=== PATIENT | male | born 1970 | race Caucasian/White ===

== ENCOUNTER 2016-11-25 00:53 | Emergency (ER) | payer OTHER ==
[~2016-11-25] VITALS: Ht 167.6 cm; Wt 72.6 kg
[2016-11-25] MEDS ORDERED: QVAR7.3 GM INH (01:02)
[2016-11-25] MEDS ORDERED: Ketorolac 60mg Inj IM ONE (01:15)
[2016-11-25] MEDS ORDERED: HYDROCODON-ACE1 EA15 ORAL (01:19)
--- NOTE | 2016-11-25 01:19 | Emergency Room Report ---
History of Present Illness General Chief Complaint: Back Pain-No Injury Source: Patient Present Illness HPI A 46-year-old male with a history of neck and back pain. He had an MRI that showed a 1-2 mm broadbase disc protrusion at C6-C7. He also had an EMG that she 'll conduction abnormality along that nerve root. 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 He said it's taken a toll in his neck and back. Complaining of severe pain at end of the day. 12/01. No nausea no vomiting. He said he took ibuprofen without much relief. He failed to mention that he is also taking tramadol and Xanax. No incontinence of bowel or urine. Pain is down her left leg. Also numbness to both arms. No fever. Allergies: Coded Allergies: No Known Allergies (Unverified , 11/25/16) Patient History Past Medical History: see triage record, old chart reviewed Past Surgical History: other Pertinent Family History: none Social History: Denies: drug use Immunizations: other Reviewed Nursing Documentation: PMH: Agreed, PSxH: Agreed Nursing Documentation-PMH Hx Asthma: Yes Review of Systems Eye: Denies: eye pain, blurred vision ENT: Denies: ear pain, nose congestion, throat swelling Respiratory: Denies: cough, shortness of breath Cardiovascular: Denies: chest pain, palpitations Gastrointestinal: Denies: abdominal pain, diarrhea, nausea, vomiting Musculoskeletal: Reports: back pain, Denies: joint pain Skin: Denies: rash Neurological: Denies: headache, numbness Endocrine: Denies: increased thirst, increased urine Hematologic/Lymphatic: Denies: easy bruising All Other Systems: negative except mentioned in HPI Physical Exam Vital Signs Date Time Temp Pulse Resp B/P (MAP) Pulse Ox O2 Delivery O2 Flow Rate FiO2 11/25/16 00:56 98.2 77 16 135/93 96 Room Air vitals normal Sp02 EP Interpretation: reviewed, normal General Appearance: well appearing, no apparent distress, alert Head: normocephalic, atraumatic Eyes: bilateral eye PERRL, bilateral eye EOMI ENT: hearing grossly normal, normal pharynx Neck: full range of motion, supple, no meningismus, tender - Diffusely Respiratory: chest non-tender, lungs clear, normal breath sounds Cardiovascular #1: regular rate, rhythm, no murmur Gastrointestinal: normal bowel sounds, non tender, no mass, no organomegaly, no bruit, non-distended Musculoskeletal: back normal - Diffuse tenderness to lumbar area, gait/station normal, normal range of motion Neurologic: alert, oriented x3 Psychiatric: mood/affect normal Skin: warm/dry Medical Decision Making Diagnostic Impression: Primary Impression: Cervical strain, acute Qualified Codes: S16.1XXA - Strain of muscle, fascia and tendon at neck level , initial encounter Additional Impression: Acute lumbar myofascial strain Qualified Codes: S39.012A - Strain of muscle, fascia and tendon of lower back , initial encounter ER Course Patient with acute exacerbation of chronic pain. No evidence of cauda equina syndrome, spinal after abscess or neoplastic process. We'll discharge home. Last Vital Signs Date Time Temp Pulse Resp B/P (MAP) Pulse Ox O2 Delivery O2 Flow Rate FiO2 11/25/16 00:56 98.2 77 16 135/93 96 Room Air Status: improved Disposition: HOME, SELF-CARE Condition: Stable Scripts Hydrocodone/Acetaminophen 5-325* (HYDROCODONE/ACETAMINOPHEN 5-325*) 1 Each Tablet 1 TAB ORAL Q6H Y for For Pain, #15 TAB 0 Refills Prov: KHURRAM HOFFMANN M.D. 11/25/16 Patient Instructions: Back Pain, Adult Additional Instructions: Followup with your DrTabitha 7 days. Return if symptom worsen. KHURRAM HOFFMANN M.D. Nov 25, 2016 01:19
[2016-11-25 01:28] VITALS: BP 135/93
[2016-11-25 01:29] VITALS: BP 135/93
== END 2016-11-25 01:29 | disposition home or self-care (01) ==
LOC: EMR 01:10
DX: S16.1XXA Strain of muscle, fascia and tendon at neck level, initial encounter (principal); S39.012A Strain of muscle, fascia and tendon of lower back, initial encounter; R20.0 Anesthesia of skin; M79.605 Pain in left leg; X50.0XXA Overexertion from strenuous movement or load, initial encounter; Y93.9 Activity, unspecified; Y99.0 Civilian activity done for income or pay
CPT/HCPCS: 96372; 99284

== ENCOUNTER 2017-03-18 19:47 | Emergency (ER) | payer MEDICAID, OTHER ==
[~2017-03-18] VITALS: Ht 167.6 cm; Wt 72.6 kg
[~2017-03-18 19:47] MED LIST: HYDROCODON-ACE1 EA15 ORAL; QVAR7.3 GM INH
[2017-03-18] MEDS ORDERED: TRAMADOL HCL50 MG ORAL (19:55)
[2017-03-18] MEDS ORDERED: ATORVASTATIN CA20 MG ORAL (19:55)
[2017-03-18] MEDS ORDERED: ROBAXIN-750750 MG PO (20:07)
[2017-03-18] MEDS ORDERED: traMADol 50mg tab ORAL ONE (20:15)
[2017-03-18 20:30] VITALS: BP 120/79
--- NOTE | 2017-03-23 08:48 | Emergency Room Report ---
History of Present Illness General Chief Complaint: Lower Back Pain or Injury Source: Patient Present Illness HPI Patient presents with complaints of low back pain reports that he has had fairly extensive workup Patient is on tramadol by his primary physician who has recommended possible pain management Patient has run out of his medication His physician is out of town He feels that he might be going through withdrawal if he does not get the medication Denies any chest pressures of breath denies any vomiting Allergies: Coded Allergies: No Known Allergies (Unverified , 11/25/16) Patient History Past Medical History: see triage record Pertinent Family History: none Reviewed Nursing Documentation: PMH: Agreed, PSxH: Agreed Nursing Documentation-PMH Past Medical History: No History, Except For Hx Asthma: Yes Review of Systems All Other Systems: negative except mentioned in HPI Physical Exam Vital Signs Date Time Temp Pulse Resp B/P (MAP) Pulse Ox O2 Delivery O2 Flow Rate FiO2 03/18/17 19:49 97.9 103 19 119/79 97 Room Air Sp02 EP Interpretation: reviewed, normal General Appearance: well appearing, no apparent distress Head: normocephalic, atraumatic Eyes: bilateral eye PERRL, bilateral eye EOMI ENT: hearing grossly normal, normal pharynx, TMs + canals normal, uvula midline Neck: full range of motion, supple, no meningismus, no bony tend Respiratory: lungs clear, normal breath sounds, no rhonchi, no respiratory distress, no retraction, no accessory muscle use Cardiovascular #1: normal peripheral pulses, regular rate, rhythm, no edema, no gallop, no JVD, no murmur Gastrointestinal: normal bowel sounds, non tender, soft, no mass, no organomegaly, non-distended, no guarding, no hernia, no pulsatile mass, no rebound Genitourinary: no CVA tenderness Musculoskeletal: other - Discomfort paraspinal L3-4-5 no obvious midline step- off patient also has increased discomfort on palpation mid trapezius bilaterally ,, Neurologic: oriented x3, responsive, family independence case manager III-XII nml as tested, sensory intact Psychiatric: mood/affect normal Skin: normal color, no rash, warm/dry, palpation normal Lymphatic: normal inspection, no adenopathy Medical Decision Making Diagnostic Impression: Primary Impression: back pain ER Course Patient does not appear to be in acute withdrawal symptoms at this time is not diaphoretic or tachycardic Patient has a benign neurological exam He was provided medication here however given the chronic prescribing habits by primary physician patient requires followup with him for further dispensing of this medication patient is understanding of this and will follow closely Last Vital Signs Date Time Temp Pulse Resp B/P (MAP) Pulse Ox O2 Delivery O2 Flow Rate FiO2 03/18/17 20:30 97.9 12 120/79 100 Room Air 03/18/17 20:30 100 Status: improved Disposition: HOME, SELF-CARE Condition: Improved Scripts Methocarbamol* (ROBAXIN-750*) 750 Mg Tablet 750 MG PO TID, #21 TAB 0 Refills Prov: ROMA CAMPUZANO D.O. 03/18/17 Referrals: [facility]ERRIN (PCP) Patient Instructions: Lumbosacral Strain, Back Pain, Adult Additional Instructions: Patient is provided with the discharge instructions notified to follow up with primary doctor in the next 2-3 days otherwise return to the er with any worsening symptoms. Please note that this report is being documented using [employer] technology. This can lead to erroneous entry secondary to incorrect interpretation by the dictating instrument. ROMA CAMPUZANO D.O. Mar 23, 2017 08:48
== END 2017-03-18 20:30 | disposition home or self-care (01) ==
LOC: EMR 20:15
DX: M54.5 Low back pain (principal)
CPT/HCPCS: 99283